=== PATIENT | male | born 1945 | race Caucasian/White ===

== ENCOUNTER 2020-07-31 06:54 | Outpatient (NON) | payer MEDICARE, OTHER, SELFPAY ==
[2020-07-31 22:32] LABS: SARS-CoV-2 RNA PCR Negative
== END 2020-07-31 06:55 ==
PROVIDERS: PCP Internal Medicine; Visit Provider Internal Medicine
DX: Z20.828 Contact with and (suspected) exposure to other viral communicable diseases (principal)
CPT/HCPCS: 87635; C9803; U0003

== ENCOUNTER 2021-04-08 14:58 | Outpatient (CLI) | payer MEDICARE, SELFPAY ==
--- NOTE | ~2021-04-08 | CT_ITS ---
EXAMINATION: CT abdomen pelvis wo/w con DATE: 04/08/2021 16:11 INDICATION: Renal mass TECHNIQUE: Computed tomography (CT) of the abdomen and pelvis was performed without and subsequently with 100 cc Omnipaque 350 intravenous contrast. Automated exposure control and iterative reconstructi on technique were employed. Exam dose: 892.06 mGy-cm total exam DLP. COMPARISON: 09/01/2016 CT abdomen pelvis FINDINGS: Stable approximately 9 x 17 mm opacity at the right lung base adjacent to the diaphragm wit h central calcification, not significantly changed in size since 09/01/2016. This most likely a calcif ied pulmonary granuloma. No infiltrate or consolidation or mass lesion is noted otherwise at the lung bases. Normal heart size. No pericardial or pleural effusion. There is a large hiatal hernia. The gallbladder is distended but no common wall thickening or pericholecystic fluid or fat stranding is noted. The liver, bile ducts, spleen, pancreas and pancreatic ducts are unremarkable. Normal morphology of the adrenal glands. There is a 3.5 cm exophytic heterogeneous centrally low density mass at the posterolateral aspect of lower pole the right kidney, consistent with hypernephroma. There is an indeterminate 8 mm hypoenhancing lesion of the medial aspect of the upper pole of the rig ht kidney (series 6 image 43). There are 3 nonobstructing right renal calculi measuring from pinpoint up to 4 mm. No right ureteral calculus or right-sided hydroureteronephrosis. There is a 1.8 cm lateral left upper pole renal cyst. There is a nonobstructing approximately 3 mm lower pole left renal calculus. There is prominent left hydroureteronephrosis; the very distal left ureter is obstructed. No apparent calculus is noted at this location. Small bladder mass at the ureterovesical junction is not exclude d. Cystoscopic correlation with retrograde pyelography should be considered. Prominent prostate enlargement. There is moderate thickening of the urinary bladder wall. Normal caliber of the abdominal aorta. No intraperitoneal or retroperitoneal or pelvic mass lesion or adenopathy or ascites. Normal appendix. No bowel obstruction, bowel wall thickening, pneumatosis or intraperitoneal free air . There is diffuse osteopenia. No suspicious osteolytic or osteoblastic lesions are noted. There is sev ere degenerative change of the lower thoracic and lumbar spine including very severe degenerative dis c disease throughout the lumbar and lumbosacral area, prominent degenerative change at the apophyseal joints. IMPRESSION: 3.5 cm exophytic heterogeneous mass at the posterior lateral lower pole of the right kid cynthia, consistent with malignant hypernephroma Indeterminate 8 mm hypoenhancing lesion of the medial aspect of upper pole of right kidney Severe left hydroureteronephrosis; very distal left ureteral obstruction of uncertain etiology. Left ureterovesical or very distal left ureteral mass lesion is not excluded. Consider cystoscopy with ret rograde pyelography. Bilateral nonobstructive nephrolithiasis 1.8 cm left upper pole renal cyst Large hiatal hernia Prominent prostate enlargement Stable size of calcified right lower lobe pulmonary granuloma Reviewed, dictated and finalized at [facility]. Reviewed, dictated and finalized at [facility]. IMPRESSION: 3.5 cm exophytic heterogeneous mass at the posterior lateral lower pole of the right kidney, consistent with malignant hypernephroma Indeterminate 8 mm hypoenhancing lesion of the medial aspect of upper pole of r ight kidney Severe left hydroureteronephrosis; very distal left ureteral obstruction of unc ertain etiology. Left ureterovesical or very distal left ureteral mass lesion i
--- NOTE | ~2021-04-08 | XR_ITS ---
XR abdomen/kub 1V DATE: 04/08/2021 15:43 INDICATION: Right renal mass TECHNIQUE: AP projection, 2 views MRI abdomen COMPARISON: 08/19/2018 MRI abdomen FINDINGS: Nonspecific bowel gas pattern without evidence of obstruction. The psoas shadows are intact . No visceromegaly is evident. This examination would not be expected to detect the previously report ed right renal mass lesion. The lung bases are clear. Heart size appears normal. Diffuse osteopenia. There is severe degenerative change of the thoracic and lumbar spine. Likely chronic avulsed right greater trochanteric fracture. IMPRESSION: Nonspecific abdomen Reviewed, dictated and finalized at [facility]. Reviewed, dictated and finalized at [facility]. IMPRESSION: Nonspecific abdomen
[2021-04-08 15:58] LABS: Estimated Glomerular Filt Rate 37
== END 2021-04-08 14:59 | disposition home or self-care (01) ==
PROVIDERS: PCP Internal Medicine; Visit Provider Urology
DX: N28.89 Other specified disorders of kidney and ureter (principal); N13.30 Unspecified hydronephrosis; N20.0 Calculus of kidney; K44.9 Diaphragmatic hernia without obstruction or gangrene; N40.0 Benign prostatic hyperplasia without lower urinary tract symptoms; R91.8 Other nonspecific abnormal finding of lung field
CPT/HCPCS: 74018; 74178; Q9967

== ENCOUNTER 2021-07-22 08:59 | Emergency (ER) | payer MEDICARE, SELFPAY ==
[2021-07-22] VITALS (34 sets, daily range): BP systolic 105–151; BP diastolic 62–127; PULSE 93–219; RESP 11–28; O2SAT 72–100
--- NOTE | ~2021-07-22 | XR_ITS ---
EXAMINATION: XR knee LT min 4V DATE: 07/22/2021 10:23 INDICATION: Left knee injury. TECHNIQUE: 4 views of left knee without weightbearing were obtained. COMPARISON: None. FINDINGS: Bone alignment is normal. No acute fracture. There is volume loss of medial tibial condyle. There are osteophytes of the medial compartment. There is moderate osteoarthritis of lateral and pat ellofemoral compartments. There is chondrocalcinosis of the menisci. There is a moderate-sized knee j oint effusion with loose bodies. IMPRESSION: 1. Volume loss of medial tibial condyle, which may be secondary to age-indeterminate fracture or van re osteoarthritis. The lack of joint space narrowing in the medial compartment is likely because the radiographs are not weightbearing. If there is clinical concern for acute medial tibial plateau fract ure, consider CT. 2. Moderate osteoarthritis of lateral and patellofemoral compartments. 3. Moderate-sized left knee joint effusion with loose bodies. Reviewed, dictated and finalized at [facility]. PLE CREW LEADER IMPRESSION: 1. Volume loss of medial tibial condyle, which may be secondary to age-indeterm inate fracture or severe osteoarthritis. The lack of joint space narrowing in t he medial compartment is likely because the radiographs are not weightbearing. If there is clinical concern for acute medial tibial plateau fracture, consider CT. 2. Moderate osteoarthritis of lateral and patellofemoral compartments. 3. Moderate-sized left knee joint effusion with loose bodies.
--- NOTE | ~2021-07-22 | XR_ITS ---
EXAMINATION: XR femur LT min 2V, XR hip BI 2V w AP pelvis DATE: 07/22/2021 09:55 INDICATION: Fall with deformity of the left lower limb TECHNIQUE: 1. Anteroposterior view of the pelvis and anteroposterior and cross-table lateral views of the left h ip and AP and frog-leg lateral views of the right hip were obtained. 2. AP and lateral views of the left femur were obtained on overlapping proximal and distal images. COMPARISON: None. FINDINGS: Subtrochanteric spiral fracture of the proximal diaphysis of the left femur with one shaft width ante rior displacement and approximately 4 cm proximal migration. There is an additional avulsion fracture of the greater trochanter involving the footplates of the right gluteal tendons with approximately 3 -4 similar proximal retraction of the greater trochanteric fragment. No fracture within the pelvis. S evere lower lumbar spondylosis. Mild left and minimal right hip osteoarthritis. More prominent osteoa rthritis at the left knee assessment of which is limited on nonweightbearing imaging and with poor pr ofiling of the joint space. IMPRESSION: 1. Displaced subtrochanteric spiral fracture of the proximal left femoral diaphysis. 2. Distracted right greater trochanteric avulsion fracture. Reviewed, dictated and finalized at location [facility]. RNET MARKETING EXECUTIVE IMPRESSION: 1. Displaced subtrochanteric spiral fracture of the proximal left femoral diaph ysis. 2. Distracted right greater trochanteric avulsion fracture.
--- NOTE | ~2021-07-22 | XR_ITS ---
EXAMINATION: XR chest 1V INDICATION: Fall, right kidney mass TECHNIQUE: AP view of the chest is obtained. COMPARISON: 07/11/2018 FINDINGS: The lungs are free of acute opacities. There is no pleural effusion or pneumothorax. A mode rate-sized hiatal hernia is present. The heart size is normal. There is advanced osteoarthritis of th e right glenohumeral joint. IMPRESSION: 1. No acute cardiopulmonary abnormality. Reviewed, dictated and finalized at location [facility]. OR BUSINESS ARCHITECT
--- NOTE | 2021-07-22 09:07 | ECG_ITS ---
Measurements Intervals [place] Rate: 104 P: 15 [place]: 188 QRS: -19 QRSD: 126 T: 31 QT: 349 QTc: 459 Interpretive Statements SINUS TACHYCARDIA RIGHT BUNDLE BRANCH BLOCK BASELINE ARTIFACT- V5-V6 ABNORMAL ECG Electronically Signed On 07-22-2021 11:23:50 AERIAL TRAM OPERATOR by Jay Jones D.O.
--- NOTE | 2021-07-22 09:32 | ED.LOWEXIN ---
HPI - Extremity Injury (Lower) General Chief Complaint: Extremity Injury, Lower Stated Complaint: FALL/F LEG DEFORMITY Time Seen by Provider: 07/22/21 09:16 Source: patient Mode of arrival: EMS Limitations: no limitations History of Present Illness HPI Narrative: This is a 76 year old male that presents to the ER for left leg pain after a ground level fall today. Reports his right leg gave out on him causing him to fall. Reports his left leg got caught under him. Reports since he has had left upper leg pain and swelling. Reports decreased ROM due to pain. Denies hitting his head, loss of consciousness, other injuries, prodromal symptoms or numbness. Related Data Home Medications Medication Instructions Recorded Confirmed hydrocodone 10 mg-acetaminophen 1 tablet PO Q6-8H PRN tablet 06/11/20 11/21/20 325 mg tablet Allergies Allergy/AdvReac Type Severity Reaction Status Date / Time No Known Allergies Allergy Unknown Verified 11/21/20 14:34 Review of Systems Review of Systems: CONSTITUTIONAL: Denies fever CARDIOVASCULAR: Denies chest pain RESPIRATORY: Denies dyspnea. GASTROINTESTINAL: Denies vomiting MUSCULOSKELETAL: Reports joint pain and myalgia. Denies back pain NEUROLOGIC: Denies numbness All systems reviewed & are unremarkable except as noted in HPI and below PMFSH Past Medical History Medical History (Updated 07/22/21 @ 12:31 by Kimberly Forde PA-C) Chronic GERD Chronic kidney disease, stage 3 (moderate) Essential (primary) hypertension Mixed hyperlipidemia Renal cell carcinoma of right kidney Type 2 diabetes mellitus without complications Family History Family History (Updated 09/09/15 @ 16:17 by DOCTOR UNKNOWN) Other Diabetes mellitus Family history of cardiovascular disease Family history of malignant neoplasm Hypertension Social History Social History Smoking status: Never smoker Second hand tobacco smoke exposure: No Alcohol intake: never Exam Narrative: GENERAL: Elderly, well-nourished, and in mild acute distress due to pain. HEAD: Normocephalic, atraumatic. EYES: PERRLA and EOMI. ENT: Nares clear, no rhinorrhea or epistaxis. Mucous membranes moist. Oropharynx without tonsillar hypertrophy exudate or other lesions. Bilateral TMs pearly rojas non-bulging NECK: Supple. No adenopathy or masses. No midline spinal tenderness CHEST: Clear to auscultation. No respiratory distress. No wheezes rales or rhonchi HEART: Regular rate and rhythm. No murmur heard. EXTREMITIES: Normal range of motion, except decreased ROM in the left knee. Edema to the left distal thigh and knee with bruising present. Difficult to palpate DP pulses bilaterally. I am able to easily doppler DP pulses SKIN: Warm, dry, no rash. NEURO: No focal deficits. Alert and oriented x3. Cranial nerves II through XII grossly intact PSYCH: Normal mood and affect Course Consultations Consultation #1: Spoke with Dr. Rendon about patient and workup who accepts transfer to [facility] Date: 07/22/21 Time: 12:00 Vital Signs Vital signs: Vital Signs Pulse Rate 121 H 07/22/21 08:54 Respiratory Rate 16 07/22/21 08:54 Blood Pressure 151/88 H 07/22/21 08:54 Pulse Oximetry 100 07/22/21 08:54 Pulse Rate 103 H 07/22/21 14:16 Respiratory Rate 14 07/22/21 14:16 Blood Pressure 150/127 H 07/22/21 14:16 Pulse Oximetry 99 07/22/21 14:16 MDM - Extremity Injury (Lower) MDM Narrative Medical decision making narrative: Patient presents the emergency department after a ground-level fall today with left upper leg pain. It is difficult to palpate DP pulses bilaterally, but I am easily able to Doppler pulses in the feet. Suspect some degree of peripheral vascular disease. Patient tachycardic upon arrival, this normalized with IV fluids. Other vitals are stable. CBC with mild leukocytosis to 13.9. Also shows normocytic anemia with hemoglobin of 9. Metabolic panel significant for a potassium of 6.8. Morales
[2021-07-22] MEDS: fentaNYL CITRATE INJ (*CRX) 100 MCG/2 ML VIAL 50 MCG IV PUSH ×2 (10:04→15:17)
[2021-07-22 11:16] LABS: Basophils Absolute Auto 0.1 K/mm3 (0.0-0.1); Basophils Percent Auto 0.4 % (0.2-1.2); Hematocrit 28.3 % (42.0-52.0); Immature Granulocyte Absolute 0.12 K/mm3 (0.00-0.031); Immature Granulocyte Percent A 0.9 % (0-0.5); Lymphocytes Absolute Auto 0.53 K/mm3 (0.9-3.2); Lymphocytes Percent Auto 3.8 % (18.3-44.2); Mean Corpuscular HGB Conc 31.8 g/dl (32-36); Mean Corpuscular Hemoglobin 31.5 pg (26-34); Mean Platelet Volume 9.2 fl (7.4-10.4); Monocytes Percent Auto 6.9 % (2.6-8.5); Neutrophils Absolute Auto 12.2 K/mm3 (1.3-6.7); Platelet Count Result 159 k/mm3 (150-375); Red Blood Count 2.86 M/mm3 (4.6-6.20); Red Cell Distribution Width 13.1 % (11.5-14.5); White Blood Count 13.9 K/mm3 (4.5-10.0)
[2021-07-22 11:26] LABS: INR 1.1; Prothrombin Time 13.8 Seconds (11.1-14.7)
[2021-07-22 11:29] LABS: Alanine Aminotransferase 18 U/L (4-50); Alkaline Phosphatase 81 U/L (38-126); Anion Gap 7 mmol/L (8-16); Aspartate Amino Transferase 25 U/L (17-59); Bilirubin,Total 0.6 mg/dL (0.2-1.3); Blood Urea Nitrogen 34 mg/dL (9-20); Calcium 8.5 mg/dL (8.4-10.2); Carbon Dioxide 19 mmol/L (22-30); Chloride 103 mmol/L (98-107); Estimated CRCL calculation 35 ml/min; Estimated Glomerular Filt Rate 42; Glucose 247 mg/dL (65-110); Potassium 6.8 mmol/L (3.4-5.0); Sodium 129 mmol/L (137-145)
[2021-07-22 12:15] LABS: Potassium 7.2 mmol/L (3.4-5.0)
[2021-07-22] MEDS: DEXTROSE 50% 25 GM/50 ML SYRINGE IV PUSH (12:24)
[2021-07-22] MEDS: SODIUM BICARBONATE 8.4% 50 MEQ/50 ML SYRINGE IV PUSH (12:24)
[2021-07-22] MEDS: CALCIUM GLUCONATE 1,000 MG/10 ML VIAL 1000 MG IV PUSH (12:25)
[2021-07-22] MEDS: INSULIN HUMAN REGULAR (*BKC) 100 UNITS/ML 10 UNITS IV PUSH (12:25)
[2021-07-22] MEDS: SODIUM CHLORIDE 0.9% IV 500 ML 999 ML IV CONT (12:36)
[2021-07-22] MEDS: diazePAM INJ (*CRX) 10 MG/2 ML SYRINGE 5 MG IV PUSH (12:37)
--- NOTE | 2021-07-22 14:33 | PC.NURSE ---
continue waiting ems arrival for transport to [facility].
== END 2021-07-22 15:23 | disposition short-term general hospital (02) ==
PROVIDERS: Physician Assistant; Emergency Provider Emergency Medicine; PCP Internal Medicine
DX: S72.22XA Displaced subtrochanteric fracture of left femur, initial encounter for closed fracture (principal); S72.112A Displaced fracture of greater trochanter of left femur, initial encounter for closed fracture; E87.5 Hyperkalemia; K21.9 Gastro-esophageal reflux disease without esophagitis; I12.9 Hypertensive chronic kidney disease with stage 1 through stage 4 chronic kidney disease, or unspecified chronic kidney disease; E11.22 Type 2 diabetes mellitus with diabetic chronic kidney disease; N18.30 Chronic kidney disease, stage 3 unspecified; E78.2 Mixed hyperlipidemia; Z85.528 Personal history of other malignant neoplasm of kidney; R00.0 Tachycardia, unspecified; I45.10 Unspecified right bundle-branch block; M17.12 Unilateral primary osteoarthritis, left knee; W18.30XA Fall on same level, unspecified, initial encounter
CPT/HCPCS: 36415; 71045; 73521; 73552; 73564; 80053; 84132; 85025; 85610; 85730; 93005; 96361; 96374; 96375; 96376; 99285; J0131; J0610; J1815; J3010; J3360; J7040